=== PATIENT | female | born 1980 | race Caucasian/White ===

== ENCOUNTER 2019-12-19 15:11 | Outpatient (CLI) | payer OTHER ==
[~2019-12-19] VITALS: Ht 165.1 cm; Wt 65.9 kg
[2019-12-19 15:15] VITALS: BP 113/68
[2019-12-19] MEDS ORDERED: methylPREDNISolone 1,000 MG, VIAL MATE ADAPTER 1 EACH in D5W 250 ML IV ONE (15:45)
[2019-12-19] MEDS ORDERED: TECF240C PO (16:09)
[2019-12-19] MEDS ORDERED: MULTCAP PO (16:10)
[2019-12-19 17:35] VITALS: BP 121/77
== END 2019-12-19 17:35 | disposition home or self-care (01) ==
LOC: M INFU 15:11
PROVIDERS: ATTEND Physician Assistant Medical
DX: G35 Multiple sclerosis (principal)
CPT/HCPCS: 96365; J2930

== ENCOUNTER 2019-12-20 15:10 | Outpatient (CLI) | payer OTHER ==
[~2019-12-20] VITALS: Ht 165.1 cm; Wt 65.9 kg
[~2019-12-20 15:10] MED LIST: MULTCAP PO; TECF240C PO
[2019-12-20] MEDS ORDERED: methylPREDNISolone 1,000 MG, VIAL MATE ADAPTER 1 EACH in D5W 250 ML IV ONE (15:30)
[2019-12-20 15:37] VITALS: BP 117/66
[2019-12-20 16:40] VITALS: BP 119/56
== END 2019-12-20 16:40 | disposition home or self-care (01) ==
LOC: M INFU 15:10
PROVIDERS: ATTEND Physician Assistant Medical
DX: G35 Multiple sclerosis (principal)
CPT/HCPCS: 96365; J2930

== ENCOUNTER 2019-12-21 15:07 | Outpatient (CLI) | payer OTHER ==
[~2019-12-21] VITALS: Ht 165.1 cm; Wt 65.9 kg
[2019-12-21 15:10] VITALS: BP 124/73
[2019-12-21] MEDS ORDERED: methylPREDNISolone 1,000 MG, VIAL MATE ADAPTER 1 EACH in D5W 250 ML IV ONE (16:00)
[2019-12-21 16:40] VITALS: BP 113/70
== END 2019-12-21 16:40 | disposition home or self-care (01) ==
LOC: M INFU 15:07 → EDUNIT# 15:30 → M INFU 16:40
PROVIDERS: ATTEND Physician Assistant Medical
DX: G35 Multiple sclerosis (principal)
CPT/HCPCS: 96365; J2930

== ENCOUNTER 2019-12-22 15:09 | Outpatient (CLI) | payer OTHER ==
[~2019-12-22] VITALS: Ht 165.1 cm; Wt 65.9 kg
[2019-12-22 15:29] VITALS: BP 108/63
[2019-12-22] MEDS ORDERED: methylPREDNISolone 1,000 MG, VIAL MATE ADAPTER 1 EACH in D5W 250 ML IV ONE (15:30)
[2019-12-22 16:42] VITALS: BP 111/70
== END 2019-12-22 16:45 | disposition home or self-care (01) ==
LOC: M INFU 15:09 → EDUNIT# 15:30 → M INFU 16:45
PROVIDERS: ATTEND Physician Assistant Medical
DX: G35 Multiple sclerosis (principal)
CPT/HCPCS: 96365; J2930

== ENCOUNTER 2019-12-23 15:05 | Outpatient (CLI) | payer OTHER ==
[~2019-12-23] VITALS: Ht 165.1 cm; Wt 65.9 kg
[~2019-12-23 15:05] MED LIST changes: +methylPREDNISolone 1,000 MG, VIAL MATE ADAPTER 1 EACH in D5W 250 ML IV ONE
[2019-12-23 15:10] VITALS: BP 148/66
[2019-12-23 16:30] VITALS: BP 127/80
== END 2019-12-23 16:30 | disposition home or self-care (01) ==
LOC: M INFU 15:05 → EDUNIT# 15:30 → M INFU 16:30
PROVIDERS: ATTEND Physician Assistant Medical
DX: G35 Multiple sclerosis (principal)
CPT/HCPCS: 96365; J2930

== ENCOUNTER → 2021-05-24 | Outpatient (CLI) | payer OTHER ==
[~2021-05-24] MED LIST changes: +ATIV1TAB10 PO; +B-122500 PO; +FLON1SPR NARES; +LIDOCAINE 1% MDV 20ML VIAL As Ordered ONE; +MULT-90 PO; +PROC10TA5 PO; +VITA200048 PO; -methylPREDNISolone 1,000 MG, VIAL MATE ADAPTER 1 EACH in D5W 250 ML IV ONE
[2021-05-24 14:30] VITALS: BP 98/60
== END ==
LOC: M IRPRO 11:17
PROVIDERS: ATTEND Preventive Medicine Undersea and Hyperbaric Medicine
DX: C22.9 Malignant neoplasm of liver, not specified as primary or secondary (principal); Q44.6 Cystic disease of liver

== ENCOUNTER → 2021-06-10 | Outpatient (CLI) | payer OTHER ==
[~2021-06-10] MED LIST changes: -LIDOCAINE 1% MDV 20ML VIAL As Ordered ONE
== END ==
LOC: M PLARAD 11:17
PROVIDERS: ATTEND Internal Medicine Medical Oncology
DX: C82.90 Follicular lymphoma, unspecified, unspecified site (principal)
CPT/HCPCS: 78815; A9552

== ENCOUNTER → 2021-08-29 | Outpatient (CLI) | payer OTHER ==
[~2021-08-29] MED LIST changes: +GASTROGRAFIN SOLUTION 30ML (Q9963) As Ordered ONE; +ISOVUE-370 76% 100ML VIAL As Ordered ONE
== END ==
LOC: M RAD 14:00
PROVIDERS: ATTEND Internal Medicine
DX: C18.9 Malignant neoplasm of colon, unspecified (principal)

== ENCOUNTER 2022-04-22 17:06 | Inpatient (IN) | payer OTHER ==
[~2022-04-22] VITALS: Ht 165.1 cm; Wt 72.2 kg
[~2022-04-22 17:06] MED LIST changes: +CIPR500T39 PO; -GASTROGRAFIN SOLUTION 30ML (Q9963) As Ordered ONE; +HYDR-3713 PO; -ISOVUE-370 76% 100ML VIAL As Ordered ONE; +LOPE1CAP5 PO; +PANT40TA29 PO
[2022-04-22] MEDS ORDERED: SPIR-10 PO (17:19)
[2022-04-22] MEDS ORDERED: FURO20TA2 (17:19)
[2022-04-22] MEDS ORDERED: OXYC-517 (17:19)
[2022-04-22] MEDS ORDERED: BENZ-18 (17:19)
[2022-04-22] MEDS ORDERED: GLAT40IN3 (17:21)
[2022-04-22] MEDS ORDERED: [UNRECOGNIZED DRUG - OTHER] (17:22)
[2022-04-22 17:56] LABS: HEMATOCRIT 33.3 % (36.0-47.0); HEMOGLOBIN 10.1 g/dl (12.0-15.5); MEAN CORPUSCULAR HEMOGLOBIN 27.7 pg (27.0-33.0); MEAN CORPUSCULAR HGB CONC 30.3 g/dl (32.0-36.5); MEAN CORPUSCULAR VOLUME 91.2 fl (80.0-96.0); PLATELET COUNT, AUTOMATED 224 10^3/uL (150-450); RED BLOOD COUNT 3.65 10^6/uL (4.00-5.40); WHITE BLOOD COUNT 14.7 10^3/uL (4.0-10.0)
[2022-04-22 18:25] LABS: ANISOCYTOSIS 2+; EOSINOPHILS 2 % (0-3); LYMPHOCYTES 1 % (16-44); METAMYELOCYTES 1 % (0-0); MONOCYTES 6 % (0-5); NEUTROPHILS 89 % (28-66); PLATELET ESTIMATE NORMAL (NORMAL)
[2022-04-22 18:28] LABS: ALBUMIN 2.1 GM/DL (3.2-5.2); BILIRUBIN,DIRECT 2.9 MG/DL (0.0-0.2); BILIRUBIN,TOTAL 3.4 MG/DL (0.2-1.0); MAGNESIUM LEVEL 1.7 MG/DL (1.8-2.4); TOTAL PROTEIN 6.9 GM/DL (6.4-8.2)
[2022-04-22] MEDS ORDERED: HYDROMORPHONE HCL 0.5 MG/ 0.5 ML SYRINGE (J1170 PER 1) IV ONE (20:40)
[2022-04-22] MEDS ORDERED: NS 1,000 ML IV ONE (20:40)
[2022-04-22] MEDS ORDERED: ONDANSETRON 4MG 2ML VIAL IV ONE (20:40)
[2022-04-22] MEDS ORDERED: ISOVUE-370 76% 100ML VIAL As Ordered ONE (20:42)
[2022-04-22] MEDS ORDERED: fentaNYL 100 MCG/2 ML INJECTION IV ONE (22:15)
[2022-04-23] MEDS ORDERED: FUROSEMIDE 40 MG TAB PO ONE
[2022-04-23] MEDS: cefTRIAXone SOD 2 GM in D5W MINI-BAG PLUS 50 ML IV SCH ×2 (00:03→22:48)
[2022-04-23] MEDS ORDERED: MAG SULF 1GM/100ML (MAG RUN) 1 GM in IV 1 EA IV ONE (00:10)
[2022-04-23] MEDS: MORPHINE 2 MG/ML 1ML VIAL IV PRN ×5 (00:45→21:52)
[2022-04-23] MEDS ORDERED: ONDANSETRON 4MG 2ML VIAL IV ONE (02:25)
[2022-04-23] MEDS ORDERED: oxyCODONE 5MG TAB PO PRN (03:00)
[2022-04-23] MEDS ORDERED: BENZONATATE 100MG CAPSULE PO PRN (03:05)
[2022-04-23] MEDS: ONDANSETRON 4MG 2ML VIAL IV PRN ×4 (04:22→20:11)
[2022-04-23] MEDS ORDERED: PANT40TA29 PO (04:23)
[2022-04-23] MEDS ORDERED: VITA500T41 PO (04:23)
[2022-04-23] MEDS ORDERED: OXYC-517 PO (04:23)
[2022-04-23] MEDS ORDERED: BENZ-18 PO (04:23)
[2022-04-23] MEDS ORDERED: FURO20TA2 PO (04:23)
[2022-04-23] MEDS ORDERED: VITMTA PO (04:23)
[2022-04-23] MEDS ORDERED: VITA100093 PO (04:23)
[2022-04-23] MEDS ORDERED: COPA1INJ SC (04:23)
[2022-04-23] MEDS ORDERED: HOME MED LIST COMPLETE! XX SCH (05:40)
[2022-04-23] MEDS ORDERED: MAXA10TA15 PO (05:40)
[2022-04-23 06:54] LABS: ALBUMIN 1.8 GM/DL (3.2-5.2); ALT/SGPT 67 U/L (12-78); BILIRUBIN,TOTAL 3.3 MG/DL (0.2-1.0); BLOOD UREA NITROGEN 6 MG/DL (7-18); CALCIUM LEVEL 8.7 MG/DL (8.5-10.1); CARBON DIOXIDE LEVEL 25 MEQ/L (21-32); CHLORIDE LEVEL 91 MEQ/L (98-107); CREATININE FOR GFR 0.36 MG/DL (0.55-1.30); GLOMERULAR FILTRATION RATE > 60.0 (>58); GLUCOSE, FASTING 92 MG/DL (70-100); MAGNESIUM LEVEL 1.8 MG/DL (1.8-2.4); POTASSIUM SERUM 3.4 MEQ/L (3.5-5.1); SODIUM LEVEL 129 MEQ/L (136-145); TOTAL PROTEIN 6.7 GM/DL (6.4-8.2)
[2022-04-23] MEDS ORDERED: POTASSIUM CHLORIDE 10MEQ SR TABLET PO ONE (07:20)
[2022-04-23 07:39] LABS: BASO % 0.2 % (0.0-1.0); EOS # 0.1 10^3/uL (0.0-0.5); EOS % 0.4 % (0.0-3.0); HEMATOCRIT 31.6 % (36.0-47.0); HEMOGLOBIN 9.5 g/dl (12.0-15.5); LYMPH # 0.7 10^3/uL (1.5-5.0); LYMPH % 5.3 % (24.0-44.0); MEAN CORPUSCULAR HEMOGLOBIN 27.4 pg (27.0-33.0); MEAN CORPUSCULAR HGB CONC 30.1 g/dl (32.0-36.5); MEAN CORPUSCULAR VOLUME 91.1 fl (80.0-96.0); MONO % 12.7 % (2.0-8.0); NEUTROPHILS # 10.5 10^3/uL (1.5-8.5); NEUTROPHILS % 75.3 % (36.0-66.0); PLATELET COUNT, AUTOMATED 221 10^3/uL (150-450); RED BLOOD COUNT 3.47 10^6/uL (4.00-5.40); WHITE BLOOD COUNT 13.9 10^3/uL (4.0-10.0)
[2022-04-23 07:49] LABS: MONO # 1.8 10^3/uL (0.0-0.8)
[2022-04-23] MEDS ORDERED: SPIRONOLACTONE 25 MG TAB PO SCH (09:00)
[2022-04-23] MEDS: PANTOPRAZOLE 40MG VIAL IV SCH (09:07)
[2022-04-23] MEDS: MIDODRINE 2.5 MG TAB PO SCH ×4 (09:07→23:19)
[2022-04-23] MEDS ORDERED: LIDOCAINE 1% MDV 20ML VIAL As Ordered ONE (09:54)
[2022-04-23 11:17] LABS: SPEC. GRAVITY BODY FLUIDS 1.022 (NOT ESTABLISHED)
[2022-04-23 11:18] LABS: APPEARANCE, BODY FLUID HAZY (CLEAR); ASCITES FL COLOR YELLOW (COLORLESS); SOURCE, BODY FLUID ASCITES
[2022-04-23 11:19] LABS: SOURCE, BODY FLUID ALBUMIN ASCITES; SOURCE, BODY FLUID GLUCOSE ASCITES; SOURCE, BODY FLUID TOT PROTEIN ASCITES
[2022-04-23 13:46] LABS: BLOOD UREA NITROGEN 7 MG/DL (7-18); CALCIUM LEVEL 8.4 MG/DL (8.5-10.1); CARBON DIOXIDE LEVEL 25 MEQ/L (21-32); CHLORIDE LEVEL 91 MEQ/L (98-107); GLOMERULAR FILTRATION RATE > 60.0 (>58); GLUCOSE, FASTING 73 MG/DL (70-100); POTASSIUM SERUM 4.4 MEQ/L (3.5-5.1); SODIUM LEVEL 128 MEQ/L (136-145)
[2022-04-23] MEDS ORDERED: DERMABOND TOPICAL SKIN ADHESIVE TOP ONE (14:05)
[2022-04-23 16:16] VITALS: BP 108/76
[2022-04-23 16:18] VITALS: O2SAT 96
[2022-04-23 17:00] VITALS: O2SAT 96
[2022-04-23 18:00] VITALS: O2SAT 97
[2022-04-23] MEDS: AZITHROMYCIN 250MG TABLET PO SCH (18:14)
[2022-04-23 19:00] VITALS: O2SAT 98
[2022-04-23] MEDS: oxyCODONE 5MG TAB PO SCH ×2 (19:50→23:20)
[2022-04-23 20:00] VITALS: BP 92/60; O2SAT 98
[2022-04-23] MEDS: guaiFENesin 200 MG TAB PO SCH (20:11)
[2022-04-23] MEDS ORDERED: LORazepam 0.5 MG TAB PO PRN (23:15)
[2022-04-23] MEDS: MIDODRINE 5 MG TAB PO SCH (23:27)
[2022-04-24] VITALS (133 sets, daily range): BP systolic 38–169; BP diastolic 20–90; O2SAT 98
[2022-04-24] MEDS: MIDODRINE 5 MG TAB PO SCH (00:55)
[2022-04-24] MEDS: guaiFENesin 200 MG TAB PO SCH ×2 (01:12→04:21)
[2022-04-24] MEDS ORDERED: NALOXONE INJ 0.4MG/1ML VIAL (J2310 PER 1MG) As Ordered ONE (01:44)
[2022-04-24] MEDS ORDERED: D10W 1,000 ML IV ONE (01:45)
[2022-04-24] MEDS ORDERED: NALOXONE 2MG/2ML SYRINGE (J2310 PER 1MG) As Ordered ONE ×2 (01:49→01:58)
[2022-04-24] MEDS ORDERED: NALOXONE 2MG/2ML SYRINGE (J2310 PER 1MG) IV STA ×4 (01:55→02:14)
[2022-04-24] MEDS ORDERED: NS 500 ML IV SCH (01:55)
[2022-04-24 02:06] LABS: ABG BASE EXCESS -24.1 (-2.0-2.0); ABG HCO3 5.2 MEQ/L (22.0-26.0); ABG O2 SATURATION 99.8 % (95.0-99.0); ABG PARTIAL PRESSURE O2 329.3 mmHg (75.0-100.0); ABG STANDARD HCO3 6.2 MEQ/L (22.0-26.0); ABG TOTAL CO2 5.9 MEQ/L (22.0-29.0)
[2022-04-24 02:10] LABS: ABG pH (ARTERIAL) 6.992 UNITS (7.350-7.450)
[2022-04-24] MEDS ORDERED: GLUCOSE 4GM CHEW TABLET PO PRN (02:10)
[2022-04-24] MEDS ORDERED: GLUCAGON INJ 1MG VIAL SC PRN (02:10)
[2022-04-24] MEDS ORDERED: DEXTROSE 50% 50 ML SYRINGE IV PRN (02:10)
[2022-04-24] MEDS ORDERED: SODIUM BICARBONATE 8.4% INJ 50 ML SYRINGE IV ONE ×2 (02:15→02:20)
[2022-04-24] MEDS ORDERED: SODIUM BICARBONATE 8.4% INJ 50 ML SYRINGE As Ordered ONE (02:16)
[2022-04-24] MEDS ORDERED: LR 1,000 ML IV ONE ×3 (02:20→13:30)
[2022-04-24 02:34] LABS: ABG BASE EXCESS -7.6 (-2.0-2.0); ABG HCO3 16.5 MEQ/L (22.0-26.0); ABG PARTIAL PRESSURE CO2 30.3 mmHg (35.0-45.0); ABG PARTIAL PRESSURE O2 509.5 mmHg (75.0-100.0); ABG STANDARD HCO3 18.5 MEQ/L (22.0-26.0); ABG TOTAL CO2 17.5 MEQ/L (22.0-29.0); ABG pH (ARTERIAL) 7.355 UNITS (7.350-7.450)
[2022-04-24 02:41] LABS: ABG O2 SATURATION 99.7 % (95.0-99.0)
[2022-04-24 03:00] LABS: CALCIUM LEVEL 8.1 MG/DL (8.5-10.1); CREATININE FOR GFR 1.28 MG/DL (0.55-1.30); GLOMERULAR FILTRATION RATE 48.9 (>58); POTASSIUM SERUM 6.6 MEQ/L (3.5-5.1)
[2022-04-24] MEDS ORDERED: D5W IV SCH ×2 (03:00→08:05)
[2022-04-24] MEDS ORDERED: NALOXONE HCL IV SCH ×2 (03:00→08:05)
[2022-04-24] MEDS: NOREPINEPHRINE BITARTRATE 16 MG in D5W 484 ML IV SCH ×3 (03:02→05:42)
[2022-04-24] MEDS ORDERED: DEXTROSE 50% 50 ML SYRINGE ONE (03:16)
[2022-04-24 03:52] LABS: ABG BASE EXCESS -19.6 (-2.0-2.0); ABG HCO3 7.1 MEQ/L (22.0-26.0); ABG O2 SATURATION 99.5 % (95.0-99.0); ABG PARTIAL PRESSURE O2 220.5 mmHg (75.0-100.0); ABG STANDARD HCO3 9.1 MEQ/L (22.0-26.0); ABG TOTAL CO2 7.7 MEQ/L (22.0-29.0); ABG pH (ARTERIAL) 7.169 UNITS (7.350-7.450)
[2022-04-24] MEDS ORDERED: SOD POLYSTYRENE SULFONATE SUSP 15GM 60ML UD PO STA (04:20)
[2022-04-24] MEDS ORDERED: FUROSEMIDE 40MG/4ML VIAL (J1940) IV ONE (04:20)
[2022-04-24] MEDS ORDERED: DEXTROSE 50% 50 ML SYRINGE IV STA ×3 (04:20→18:27)
[2022-04-24] MEDS ORDERED: CALCIUM GLUCONATE 1,000 MG in D5W MINI-BAG PLUS 100 ML IV ONE (04:20)
[2022-04-24] MEDS ORDERED: HumuLIN R (REGULAR) INSULIN (NovoLIN R) **100U/ML** PER UNIT IV STA ×2 (04:20→18:27)
[2022-04-24 04:23] LABS: MEAN CORPUSCULAR HGB CONC 27.7 g/dl (32.0-36.5); MEAN CORPUSCULAR VOLUME 100.9 fl (80.0-96.0); PLATELET COUNT, AUTOMATED 392 10^3/uL (150-450); RED BLOOD COUNT 2.18 10^6/uL (4.00-5.40)
[2022-04-24 04:34] LABS: HEMOGLOBIN 6.1 g/dl (12.0-15.5); WHITE BLOOD COUNT 40.8 10^3/uL (4.0-10.0)
[2022-04-24] MEDS ORDERED: SODIUM BICARBONATE 150 MEQ in D5W 1,000 ML IV SCH (04:45)
[2022-04-24 05:01] LABS: HEMATOCRIT 23.2 % (36.0-47.0)
[2022-04-24 05:28] LABS: ALBUMIN 1.2 GM/DL (3.2-5.2); BILIRUBIN,TOTAL 2.8 MG/DL (0.2-1.0); CALCIUM LEVEL 7.2 MG/DL (8.5-10.1); CREATININE FOR GFR 1.28 MG/DL (0.55-1.30); GLOMERULAR FILTRATION RATE 48.9 (>58); MAGNESIUM LEVEL 2.3 MG/DL (1.8-2.4); POTASSIUM SERUM 5.7 MEQ/L (3.5-5.1); TOTAL PROTEIN 4.2 GM/DL (6.4-8.2)
[2022-04-24] MEDS: VASOPRESSIN INJ 20 UNITS in NS 499 ML IV SCH ×3 (05:39→20:20)
[2022-04-24] MEDS ORDERED: LR 500 ML IV ONE (06:00)
[2022-04-24] MEDS ORDERED: PHENYLEPHRINE HCL INJ 50 MG in D5W 495 ML IV SCH (06:30)
[2022-04-24] MEDS ORDERED: NOREPINEPHRINE BITARTRATE 16 MG in D5W 484 ML IV SCH (06:59)
[2022-04-24 07:05] LABS: CORTISOL AM 73.1 UG/DL (4.3-22.4)
[2022-04-24 08:00] LABS: ABG BASE EXCESS -23.7 (-2.0-2.0); ABG HCO3 5.1 MEQ/L (22.0-26.0); ABG O2 SATURATION 96.6 % (95.0-99.0); ABG PARTIAL PRESSURE O2 113.1 mmHg (75.0-100.0); ABG STANDARD HCO3 6.7 MEQ/L (22.0-26.0); ABG TOTAL CO2 5.7 MEQ/L (22.0-29.0)
[2022-04-24] MEDS: MIDODRINE 2.5 MG TAB PO SCH ×3 (08:00→15:29)
[2022-04-24] MEDS ORDERED: VANCOMYCIN HCL 750 MG, VIAL MATE ADAPTER 1 EACH in NS 250 ML IV ONE (08:00)
[2022-04-24 08:01] LABS: ABG PARTIAL PRESSURE CO2 19.6 mmHg (35.0-45.0); ABG pH (ARTERIAL) 7.034 UNITS (7.350-7.450)
[2022-04-24 08:18] LABS: ATYPICAL LYMPH 2 % (0-5); BLAST CELLS 2 % (0-0); LYMPHOCYTES 3 % (16-44); METAMYELOCYTES 17 % (0-0); MONOCYTES 1 % (0-5); MYELOCYTES 13 % (0-0); NEUTROPHILS 40 % (28-66); PROMYELOCYTES 2 % (0-0)
[2022-04-24 08:19] LABS: ANISOCYTOSIS 4+
[2022-04-24 08:20] LABS: HYPOCHROMASIA 2+
[2022-04-24 08:21] LABS: POLYCHROMASIA 1+; SMUDGE CELLS 1+
[2022-04-24 08:23] LABS: PLATELET ESTIMATE NORMAL (NORMAL)
[2022-04-24] MEDS: PANTOPRAZOLE 40MG VIAL IV SCH (08:59)
[2022-04-24] MEDS ORDERED: FENTANYL DRIP LOCK BOX KEY 1 EACH XX PRN (10:40)
[2022-04-24] MEDS: fentaNYL CITRATE/NaCl 1,000 MCG in IV 1 EA IV SCH ×2 (10:40→13:39)
[2022-04-24] MEDS: oxyCODONE 5MG TAB PO SCH (11:28)
[2022-04-24 11:34] LABS: ABG BASE EXCESS -20.6 (-2.0-2.0); ABG HCO3 6.7 MEQ/L (22.0-26.0); ABG O2 SATURATION 99.7 % (95.0-99.0); ABG PARTIAL PRESSURE CO2 20.7 mmHg (35.0-45.0); ABG PARTIAL PRESSURE O2 303.3 mmHg (75.0-100.0); ABG STANDARD HCO3 8.5 MEQ/L (22.0-26.0); ABG TOTAL CO2 7.4 MEQ/L (22.0-29.0)
[2022-04-24 11:41] LABS: ABG pH (ARTERIAL) 7.129 UNITS (7.350-7.450)
[2022-04-24 12:29] LABS: MEAN CORPUSCULAR HEMOGLOBIN 29.8 pg (27.0-33.0); MEAN CORPUSCULAR VOLUME 99.4 fl (80.0-96.0); PLATELET COUNT, AUTOMATED 185 10^3/uL (150-450); RED BLOOD COUNT 1.81 10^6/uL (4.00-5.40)
[2022-04-24] MEDS: VANCOMYCIN HCL 750 MG, VIAL MATE ADAPTER 1 EACH in D5W 250 ML IV SCH ×2 (12:34→23:32)
[2022-04-24 12:58] LABS: HEMOGLOBIN 5.4 g/dl (12.0-15.5); WHITE BLOOD COUNT 37.3 10^3/uL (4.0-10.0)
[2022-04-24] MEDS ORDERED: ETOMIDATE INJ 20MG/10ML VIAL IV STA (13:26)
[2022-04-24] MEDS ORDERED: ISOVUE-370 76% 100ML VIAL As Ordered ONE (13:43)
[2022-04-24 13:46] LABS: HYPOCHROMASIA 2+; LYMPHOCYTES 7 % (16-44); METAMYELOCYTES 10 % (0-0); MYELOCYTES 13 % (0-0); NEUTROPHILS 49 % (28-66); PROMYELOCYTES 1 % (0-0)
[2022-04-24 13:47] LABS: ANISOCYTOSIS 2+; POLYCHROMASIA 1+
[2022-04-24 13:48] LABS: PLATELET ESTIMATE NORMAL (NORMAL)
[2022-04-24 13:50] LABS: PARTIAL THROMBOPLASTIN TIME 65.2 SECONDS (24.8-34.2); PROTHROMBIN TIME 60.4 SECONDS (12.5-14.5)
[2022-04-24 14:43] LABS: BILIRUBIN,TOTAL 2.9 MG/DL (0.2-1.0); CREATININE FOR GFR 1.53 MG/DL (0.55-1.30); GLOMERULAR FILTRATION RATE 39.8 (>58); TOTAL PROTEIN 3.5 GM/DL (6.4-8.2)
[2022-04-24] MEDS ORDERED: LIDOCAINE 1% MDV 20ML VIAL As Ordered ONE (14:50)
[2022-04-24] MEDS ORDERED: MIDAZOLAM 100MG/100ML-0.9%NACL 100 MG in IV 1 EA IV SCH (14:55)
[2022-04-24 15:04] LABS: INR 6.87
[2022-04-24] MEDS ORDERED: HumuLIN R (REGULAR) INSULIN (NovoLIN R) **100U/ML** PER UNIT IV ONE (15:10)
[2022-04-24] MEDS: HYDROCORTISONE 100 MG/2 ML VIAL (J1720 PER 1) IV SCH ×2 (15:27→20:24)
[2022-04-24] MEDS ORDERED: PATIROMER SORBITEX CALCIUM 8.4 GM POWDER PACKET (VELTASSA) PO ONE (16:00)
[2022-04-24] MEDS: SODIUM BICARBONATE 150 MEQ in D5W 1,000 ML IV SCH ×4 (16:07→22:00)
[2022-04-24] MEDS ORDERED: SODIUM CHLORIDE 0.9% INJ 10 ML SYR IV PRN (17:15)
[2022-04-24 17:42] LABS: ABG BASE EXCESS -14.3 (-2.0-2.0); ABG HCO3 10.1 MEQ/L (22.0-26.0); ABG PARTIAL PRESSURE CO2 20.6 mmHg (35.0-45.0); ABG PARTIAL PRESSURE O2 163.4 mmHg (75.0-100.0); ABG STANDARD HCO3 13.3 MEQ/L (22.0-26.0); ABG TOTAL CO2 10.8 MEQ/L (22.0-29.0)
[2022-04-24 17:50] LABS: HEMATOCRIT 27.7 % (36.0-47.0); HEMOGLOBIN 8.9 g/dl (12.0-15.5); MEAN CORPUSCULAR HEMOGLOBIN 29.8 pg (27.0-33.0); MEAN CORPUSCULAR HGB CONC 32.1 g/dl (32.0-36.5); MEAN CORPUSCULAR VOLUME 92.6 fl (80.0-96.0); PLATELET COUNT, AUTOMATED 118 10^3/uL (150-450); RED BLOOD COUNT 2.99 10^6/uL (4.00-5.40)
[2022-04-24 17:58] LABS: WHITE BLOOD COUNT 29.6 10^3/uL (4.0-10.0)
[2022-04-24] MEDS: AZITHROMYCIN 250MG TABLET PO SCH (18:00)
[2022-04-24 18:23] LABS: CALCIUM LEVEL 6.9 MG/DL (8.5-10.1); CREATININE FOR GFR 1.79 MG/DL (0.55-1.30); GLOMERULAR FILTRATION RATE 33.2 (>58); POTASSIUM SERUM 6.4 MEQ/L (3.5-5.1)
[2022-04-24 18:56] LABS: LYMPHOCYTES 6 % (16-44); METAMYELOCYTES 7 % (0-0); MICROCYTOSIS 1+; MONOCYTES 4 % (0-5); MYELOCYTES 5 % (0-0); NEUTROPHILS 68 % (28-66); POIKILOCYTOSIS 1+
[2022-04-24 18:57] LABS: ANISOCYTOSIS 1+; PLATELET ESTIMATE DECREASED (NORMAL)
[2022-04-24] MEDS: cefTRIAXone SOD 2 GM in D5W MINI-BAG PLUS 50 ML IV SCH (22:34)
[2022-04-25] VITALS (93 sets, daily range): BP systolic 60–132; BP diastolic 39–74
[2022-04-25] MEDS: fentaNYL CITRATE/NaCl 1,000 MCG in IV 1 EA IV SCH ×2
[2022-04-25 00:31] LABS: HEMATOCRIT 26.3 % (36.0-47.0); HEMOGLOBIN 9.1 g/dl (12.0-15.5); MEAN CORPUSCULAR HGB CONC 34.6 g/dl (32.0-36.5); MEAN CORPUSCULAR VOLUME 86.8 fl (80.0-96.0); PLATELET COUNT, AUTOMATED 100 10^3/uL (150-450); RED BLOOD COUNT 3.03 10^6/uL (4.00-5.40)
[2022-04-25 00:42] LABS: CALCIUM LEVEL 7.2 MG/DL (8.5-10.1); CREATININE FOR GFR 1.35 MG/DL (0.55-1.30); PHOSPHORUS LEVEL 5.7 MG/DL (2.5-4.9)
[2022-04-25 00:56] LABS: ANISOCYTOSIS 1+; LYMPHOCYTES 4 % (16-44); METAMYELOCYTES 3 % (0-0); MONOCYTES 4 % (0-5); MYELOCYTES 7 % (0-0); NEUTROPHILS 77 % (28-66); PLATELET ESTIMATE DECREASED (NORMAL); POLYCHROMASIA 1+; TOXIC VACUOLATION 1+
[2022-04-25 00:57] LABS: POIKILOCYTOSIS 2+; SCHISTOCYTES 1+
[2022-04-25] MEDS ORDERED: CALCIUM GLUCONATE 1,000 MG in D5W MINI-BAG PLUS 100 ML IV STA (01:18)
[2022-04-25] MEDS: CALCIUM GLUCONATE 1,000 MG in D5W MINI-BAG PLUS 100 ML IV SCH ×2 (01:58→03:09)
[2022-04-25] MEDS: HYDROCORTISONE 100 MG/2 ML VIAL (J1720 PER 1) IV SCH ×4 (03:09→22:13)
[2022-04-25] MEDS: VASOPRESSIN INJ 20 UNITS in NS 499 ML IV SCH (05:00)
[2022-04-25 05:27] LABS: HEMATOCRIT 24.7 % (36.0-47.0); HEMOGLOBIN 8.6 g/dl (12.0-15.5); MEAN CORPUSCULAR HGB CONC 34.8 g/dl (32.0-36.5); MEAN CORPUSCULAR VOLUME 86.1 fl (80.0-96.0); RED BLOOD COUNT 2.87 10^6/uL (4.00-5.40); WHITE BLOOD COUNT 26.3 10^3/uL (4.0-10.0)
[2022-04-25] MEDS: NOREPINEPHRINE BITARTRATE 16 MG in D5W 484 ML IV SCH ×2 (05:38→08:52)
[2022-04-25 05:42] LABS: PLATELET COUNT, AUTOMATED 94 10^3/uL (150-450)
[2022-04-25 05:44] LABS: LYMPHOCYTES 13 % (16-44); METAMYELOCYTES 2 % (0-0); MONOCYTES 11 % (0-5); MYELOCYTES 7 % (0-0); NEUTROPHILS 59 % (28-66); PLATELET ESTIMATE DECREASED (NORMAL)
[2022-04-25 05:45] LABS: ANISOCYTOSIS 1+; POIKILOCYTOSIS 1+; POLYCHROMASIA 1+
[2022-04-25 05:53] LABS: CALCIUM LEVEL 7.4 MG/DL (8.5-10.1); CREATININE FOR GFR 1.31 MG/DL (0.55-1.30); GLOMERULAR FILTRATION RATE 47.6 (>58); PHOSPHORUS LEVEL 5.3 MG/DL (2.5-4.9); POTASSIUM SERUM 5.2 MEQ/L (3.5-5.1)
[2022-04-25 07:00] LABS: ALBUMIN 1.7 GM/DL (3.2-5.2); BILIRUBIN,TOTAL 6.5 MG/DL (0.2-1.0); CALCIUM LEVEL 7.4 MG/DL (8.5-10.1); CREATININE FOR GFR 1.33 MG/DL (0.55-1.30); GLOMERULAR FILTRATION RATE 46.8 (>58); POTASSIUM SERUM 5.1 MEQ/L (3.5-5.1); TOTAL PROTEIN 4.4 GM/DL (6.4-8.2)
[2022-04-25] MEDS ORDERED: CALCIUM GLUCONATE 1,000 MG in D5W MINI-BAG PLUS 100 ML IV SCH (07:00)
[2022-04-25] MEDS: SODIUM BICARBONATE 150 MEQ in D5W 1,000 ML IV SCH (07:48)
[2022-04-25 08:33] LABS: ABG BASE EXCESS -4.7 (-2.0-2.0); ABG PARTIAL PRESSURE CO2 25.9 mmHg (35.0-45.0); ABG PARTIAL PRESSURE O2 93.3 mmHg (75.0-100.0); ABG STANDARD HCO3 20.6 MEQ/L (22.0-26.0); ABG TOTAL CO2 18.8 MEQ/L (22.0-29.0); ABG pH (ARTERIAL) 7.461 UNITS (7.350-7.450)
[2022-04-25] MEDS: PANTOPRAZOLE 40MG VIAL IV SCH (08:47)
[2022-04-25] MEDS: CALCIUM GLUCONATE 1,000 MG, VIAL MATE ADAPTER 1 EACH in NS 100 ML IV SCH ×4 (08:50→17:24)
[2022-04-25] MEDS ORDERED: SODIUM CHLORIDE 0.9% INJ 10 ML SYR IV PRN (10:05)
[2022-04-25] MEDS ORDERED: LR 1,000 ML IV ONE (10:10)
[2022-04-25] MEDS: MIDODRINE 5 MG TAB PO SCH ×2 (10:47→16:04)
[2022-04-25] MEDS: INSULIN LISPRO (NovoLOG) PER UNIT SC SCH ×2 (12:00→18:00)
[2022-04-25 12:07] LABS: ABG BASE EXCESS -5.8 (-2.0-2.0); ABG O2 SATURATION 95.7 % (95.0-99.0); ABG STANDARD HCO3 19.7 MEQ/L (22.0-26.0); ABG TOTAL CO2 17.8 MEQ/L (22.0-29.0); ABG pH (ARTERIAL) 7.451 UNITS (7.350-7.450)
[2022-04-25 13:11] LABS: CALCIUM LEVEL 8.1 MG/DL (8.5-10.1); CREATININE FOR GFR 1.15 MG/DL (0.55-1.30); GLOMERULAR FILTRATION RATE 55.4 (>58); MAGNESIUM LEVEL 1.9 MG/DL (1.8-2.4); PHOSPHORUS LEVEL 4.6 MG/DL (2.5-4.9); POTASSIUM SERUM 4.8 MEQ/L (3.5-5.1)
[2022-04-25] MEDS: VANCOMYCIN HCL 750 MG, VIAL MATE ADAPTER 1 EACH in D5W 250 ML IV SCH (13:31)
[2022-04-25] MEDS ORDERED: MAG SULF 1GM/100ML (MAG RUN) 1 GM in IV 1 EA IV ONE (14:00)
[2022-04-25] MEDS ORDERED: ETOMIDATE INJ 20MG/10ML VIAL ONE (15:13)
[2022-04-25 18:32] LABS: HEMATOCRIT 29.1 % (36.0-47.0); HEMOGLOBIN 10.2 g/dl (12.0-15.5); MEAN CORPUSCULAR HEMOGLOBIN 30.4 pg (27.0-33.0); MEAN CORPUSCULAR HGB CONC 35.1 g/dl (32.0-36.5); MEAN CORPUSCULAR VOLUME 86.9 fl (80.0-96.0); RED BLOOD COUNT 3.35 10^6/uL (4.00-5.40)
[2022-04-25 18:36] LABS: PLATELET COUNT, AUTOMATED 95 10^3/uL (150-450); WHITE BLOOD COUNT 40.3 10^3/uL (4.0-10.0)
[2022-04-25 19:19] LABS: CALCIUM LEVEL 8.5 MG/DL (8.5-10.1); CREATININE FOR GFR 1.15 MG/DL (0.55-1.30); GLOMERULAR FILTRATION RATE 55.4 (>58); MAGNESIUM LEVEL 2.5 MG/DL (1.8-2.4); PHOSPHORUS LEVEL 4.2 MG/DL (2.5-4.9); POTASSIUM SERUM 4.7 MEQ/L (3.5-5.1)
[2022-04-25] MEDS ORDERED: CALCIUM GLUCONATE 1,000 MG, VIAL MATE ADAPTER 1 EACH in NS 100 ML IV ONE (20:00)
[2022-04-25] MEDS: cefTRIAXone SOD 2 GM in D5W MINI-BAG PLUS 50 ML IV SCH (22:13)
[2022-04-26] VITALS (60 sets, daily range): BP systolic 74–141; BP diastolic 25–76
[2022-04-26 00:18] LABS: HEMATOCRIT 30.6 % (36.0-47.0); HEMOGLOBIN 10.7 g/dl (12.0-15.5); MEAN CORPUSCULAR HEMOGLOBIN 30.5 pg (27.0-33.0); MEAN CORPUSCULAR VOLUME 87.2 fl (80.0-96.0); RED BLOOD COUNT 3.51 10^6/uL (4.00-5.40)
[2022-04-26] MEDS: VANCOMYCIN HCL 750 MG, VIAL MATE ADAPTER 1 EACH in D5W 250 ML IV SCH ×2 (00:30→12:00)
[2022-04-26 00:32] LABS: PLATELET COUNT, AUTOMATED 98 10^3/uL (150-450); WHITE BLOOD COUNT 44.9 10^3/uL (4.0-10.0)
[2022-04-26 00:48] LABS: BLOOD UREA NITROGEN 11 MG/DL (7-18); CALCIUM LEVEL 8.4 MG/DL (8.5-10.1); CARBON DIOXIDE LEVEL 15 MEQ/L (21-32); CHLORIDE LEVEL 102 MEQ/L (98-107); CREATININE FOR GFR 1.05 MG/DL (0.55-1.30); GLOMERULAR FILTRATION RATE > 60.0 (>58); GLUCOSE, FASTING 57 MG/DL (70-100); MAGNESIUM LEVEL 2.1 MG/DL (1.8-2.4); PHOSPHORUS LEVEL 3.9 MG/DL (2.5-4.9); POTASSIUM SERUM 4.9 MEQ/L (3.5-5.1); SODIUM LEVEL 134 MEQ/L (136-145)
[2022-04-26] MEDS: CALCIUM GLUCONATE 1,000 MG, VIAL MATE ADAPTER 1 EACH in NS 100 ML IV SCH ×2 (01:13→02:24)
[2022-04-26] MEDS: HYDROCORTISONE 100 MG/2 ML VIAL (J1720 PER 1) IV SCH ×2 (03:07→08:45)
[2022-04-26] MEDS ORDERED: METOPROLOL 5 MG/5 ML VIAL As Ordered ONE (05:57)
[2022-04-26 05:59] LABS: ABG BASE EXCESS -8.5 (-2.0-2.0); ABG HCO3 14.2 MEQ/L (22.0-26.0); ABG O2 SATURATION 96.6 % (95.0-99.0); ABG PARTIAL PRESSURE CO2 22.1 mmHg (35.0-45.0); ABG PARTIAL PRESSURE O2 88.2 mmHg (75.0-100.0); ABG STANDARD HCO3 17.6 MEQ/L (22.0-26.0); ABG TOTAL CO2 14.9 MEQ/L (22.0-29.0); ABG pH (ARTERIAL) 7.426 UNITS (7.350-7.450)
[2022-04-26] MEDS: INSULIN LISPRO (NovoLOG) PER UNIT SC SCH ×3 (06:00→11:31)
[2022-04-26] MEDS ORDERED: METOPROLOL 5 MG/5 ML VIAL IV SCH (06:00)
[2022-04-26 06:07] LABS: HEMOGLOBIN 9.8 g/dl (12.0-15.5); MEAN CORPUSCULAR HEMOGLOBIN 30.1 pg (27.0-33.0); MEAN CORPUSCULAR HGB CONC 33.8 g/dl (32.0-36.5); PLATELET COUNT, AUTOMATED 104 10^3/uL (150-450); RED BLOOD COUNT 3.26 10^6/uL (4.00-5.40)
[2022-04-26] MEDS: NOREPINEPHRINE BITARTRATE 16 MG in D5W 484 ML IV SCH (06:10)
[2022-04-26 06:11] LABS: WHITE BLOOD COUNT 48.4 10^3/uL (4.0-10.0)
[2022-04-26] MEDS ORDERED: CALCIUM GLUCONATE 1,000 MG, VIAL MATE ADAPTER 1 EACH in NS 100 ML IV ONE (06:35)
[2022-04-26 06:45] LABS: MAGNESIUM LEVEL 2.1 MG/DL (1.8-2.4); PHOSPHORUS LEVEL 3.9 MG/DL (2.5-4.9)
[2022-04-26] MEDS: VASOPRESSIN INJ 20 UNITS in NS 499 ML IV SCH (06:45)
[2022-04-26 07:10] LABS: LYMPHOCYTES 2 % (16-44); METAMYELOCYTES 2 % (0-0); MONOCYTES 3 % (0-5); MYELOCYTES 4 % (0-0); NEUTROPHILS 68 % (28-66)
[2022-04-26 07:12] LABS: ANISOCYTOSIS 1+; BURR CELLS 1+; PLATELET CLUMPS SMALL AMT; SMUDGE CELLS 1+
[2022-04-26 07:14] LABS: CRENATED RBC 1+; PLATELET ESTIMATE DECREASED (NORMAL); POIKILOCYTOSIS 1+; POLYCHROMASIA 1+; TEAR DROP CELLS 1+
[2022-04-26 07:15] LABS: SCHISTOCYTES 1+
[2022-04-26 07:44] LABS: ALBUMIN 1.6 GM/DL (3.2-5.2); BILIRUBIN,TOTAL 7.8 MG/DL (0.2-1.0); CALCIUM LEVEL 8.3 MG/DL (8.5-10.1); CREATININE FOR GFR 1.09 MG/DL (0.55-1.30); GLOMERULAR FILTRATION RATE 58.9 (>58); POTASSIUM SERUM 4.7 MEQ/L (3.5-5.1); TOTAL PROTEIN 4.4 GM/DL (6.4-8.2)
[2022-04-26] MEDS ORDERED: AMIODARONE HCL 150 MG in IV 1 EA IV STA (07:53)
[2022-04-26] MEDS ORDERED: AMIODARONE HCL 360 MG in IV 1 EA IV SCH ×2 (08:15→15:00)
[2022-04-26] MEDS: PANTOPRAZOLE 40MG VIAL IV SCH (08:45)
[2022-04-26] MEDS: MIDODRINE 5 MG TAB PO SCH (08:45)
[2022-04-26] MEDS ORDERED: MIDAZOLAM INJ 2MG/2ML VIAL (J2250 PER 1MG) IV PRN (09:10)
[2022-04-26] MEDS ORDERED: fentaNYL 100 MCG/2 ML INJECTION IV PRN (09:10)
[2022-04-26] MEDS ORDERED: MEROPENEM INJ 1 GM in IV 1 EA IV SCH (10:00)
[2022-04-26] MEDS ORDERED: LR 1,000 ML IV ONE (10:10)
[2022-04-26] MEDS ORDERED: LORazepam 2 MG/ML VIAL IV PRN (10:40)
[2022-04-26] MEDS ORDERED: MORPHINE 2 MG/ML 1ML VIAL IV PRN (10:40)
[2022-04-26] MEDS ORDERED: NOREPINEPHRINE 4MG IN D5 250ML 4 MG in IV 1 EA IV SCH ×2 (13:30)
== END 2022-04-26 14:53 | disposition expired | DRG 435 ==
LOC: M ED 17:06 → M ED INP 22:53 → ENRESERV 04-23 14:04 → M PCU 04-23 15:57 → M ICU 04-24 01:49
PROVIDERS: ADMIT Family Medicine; ATTEND Internal Medicine Pulmonary Disease
PROC: 0W9G3ZZ Drainage of Peritoneal Cavity, Percutaneous Approach (ICD-10-PCS; principal; 2022-04-23 09:35)
PROC: 0W9G3ZZ Drainage of Peritoneal Cavity, Percutaneous Approach (ICD-10-PCS; 2022-04-24)
PROC: 0BH17EZ Insertion of Endotracheal Airway into Trachea, Via Natural or Artificial Opening (ICD-10-PCS; 2022-04-24)
PROC: 02HV33Z Insertion of Infusion Device into Superior Vena Cava, Percutaneous Approach (ICD-10-PCS; 2022-04-24)
PROC: 5A1D90Z Performance of Urinary Filtration, Continuous, Greater than 18 hours Per Day (ICD-10-PCS; 2022-04-24)
PROC: 30233N1 Transfusion of Nonautologous Red Blood Cells into Peripheral Vein, Percutaneous Approach (ICD-10-PCS; 2022-04-24)
PROC: 30233J1 Transfusion of Nonautologous Serum Albumin into Peripheral Vein, Percutaneous Approach (ICD-10-PCS; 2022-04-24)
PROC: 30233K1 Transfusion of Nonautologous Frozen Plasma into Peripheral Vein, Percutaneous Approach (ICD-10-PCS; 2022-04-24)
PROC: 5A1945Z Respiratory Ventilation, 24-96 Consecutive Hours (ICD-10-PCS; 2022-04-24)
DX: C78.7 Secondary malignant neoplasm of liver and intrahepatic bile duct (principal); J96.00 Acute respiratory failure, unspecified whether with hypoxia or hypercapnia; K72.00 Acute and subacute hepatic failure without coma; K66.1 Hemoperitoneum; R18.0 Malignant ascites; C18.9 Malignant neoplasm of colon, unspecified; C78.01 Secondary malignant neoplasm of right lung; C78.02 Secondary malignant neoplasm of left lung; N17.9 Acute kidney failure, unspecified; D62 Acute posthemorrhagic anemia; C78.6 Secondary malignant neoplasm of retroperitoneum and peritoneum; D68.4 Acquired coagulation factor deficiency; J90 Pleural effusion, not elsewhere classified; I87.1 Compression of vein; E22.2 Syndrome of inappropriate secretion of antidiuretic hormone; Z51.5 Encounter for palliative care; R57.8 Other shock; D72.829 Elevated white blood cell count, unspecified; R57.1 Hypovolemic shock; G35 Multiple sclerosis; E87.20 Acidosis, unspecified; E87.5 Hyperkalemia; I48.91 Unspecified atrial fibrillation; Z80.3 Family history of malignant neoplasm of breast; Z87.891 Personal history of nicotine dependence; K21.9 Gastro-esophageal reflux disease without esophagitis; E83.42 Hypomagnesemia; Z79.899 Other long term (current) drug therapy; Z88.8 Allergy status to other drugs, medicaments and biological substances; Z95.828 Presence of other vascular implants and grafts